=== PATIENT | male | born 1995 | race Caucasian/White ===

== ENCOUNTER 2017-10-22 20:52 | Emergency (ER) | payer BC ==
[~2017-10-22] VITALS: Ht 167.6 cm; Wt 99.8 kg
[2017-10-22 21:00] VITALS: BP 148/85
--- NOTE | 2017-10-22 21:43 | NUR ---
GISELL FERGUSON AT BEDSIDE FOR EVAL.
[2017-10-22] MEDS ORDERED: DEXAMETHASONE SOD PHOSPHATE 10 MG/ML VIAL ONE (21:58)
[2017-10-22] MEDS ORDERED: PENICILLIN G BENZATHINE 2.4 MMU/4 ML ML IM ONE ×2 (21:58→22:00)
[2017-10-22] MEDS ORDERED: DEXAMETHASONE SOD PHOSPHATE 10 MG/ML VIAL IM ONE (22:00)
== END 2017-10-22 22:06 | disposition home or self-care (01) ==
LOC: ER 20:55
DX: J03.90 Acute tonsillitis, unspecified (principal); F17.200 Nicotine dependence, unspecified, uncomplicated
CPT/HCPCS: A4606; J0558; J1100; Z7610

== ENCOUNTER 2017-10-24 19:38 | Emergency (ER) | payer BC ==
[~2017-10-24] VITALS: Ht 170.2 cm; Wt 99.8 kg
[2017-10-24] MEDS ORDERED: chlorproMAZINE HCL 25 MG TABLET PO ONE (20:30)
[2017-10-24] MEDS ORDERED: chlorproMAZINE HCL 25 MG TABLET ONE ×2 (21:07→21:08)
[2017-10-24 21:10] VITALS: BP 127/79
== END 2017-10-24 21:11 | disposition home or self-care (01) ==
LOC: ER 19:45
DX: R06.6 Hiccough (principal); F17.200 Nicotine dependence, unspecified, uncomplicated
CPT/HCPCS: 71010; 99283; 99406; A4606; Q0161 ×2; Z7610

== ENCOUNTER 2022-01-13 21:29 | Emergency (ER) | payer BC ==
[~2022-01-13] VITALS: Ht 165.1 cm; Wt 99.8 kg
--- NOTE | 2022-01-13 21:37 | NUR ---
BIBS C/O "SORETHROAT X2DAYS" TYLENOL [employer]ER. PATIENT ALERT AND ORIENTED X3. AMBULATORY WITH NON LABORED BREATHING.
[2022-01-13] MEDS ORDERED: DEXAMETHASONE SOD PHOSPHATE 4 MG/ML VIAL IM ONE (22:00)
[2022-01-13] MEDS ORDERED: DEXAMETHASONE SOD PHOSPHATE 4 MG/ML VIAL ONE (22:12)
--- NOTE | 2022-01-13 22:12 | NUR ---
COVID ANTIGEN AND STREP THROAT SWAB COLLECTED
[2022-01-13] MEDS ORDERED: AMOX500T2 PO (22:20)
--- NOTE | 2022-01-13 22:52 | NUR ---
Patient discharged to home in stable condition. Written and verbal after care instructions given. Patient verbalizes understanding of instruction.
[2022-01-13 22:53] VITALS: BP 135/71
== END 2022-01-13 22:54 | disposition home or self-care (01) ==
LOC: ER 21:32
DX: J02.0 Streptococcal pharyngitis (principal); B95.0 Streptococcus, group A, as the cause of diseases classified elsewhere; Z20.822 Contact with and (suspected) exposure to COVID-19; F17.200 Nicotine dependence, unspecified, uncomplicated
CPT/HCPCS: 87426; 87880; 96372; 99283; C9803; J1100; 86403-TC

== ENCOUNTER 2022-07-21 00:18 | Emergency (ER) | payer BC ==
[~2022-07-21] VITALS: Ht 165.1 cm; Wt 127.0 kg
[~2022-07-21 00:18] MED LIST: AMOX500T2 PO
[2022-07-21 00:40] VITALS: BP 168/90
[2022-07-21] MEDS ORDERED: CEPH500T PO (00:45)
[2022-07-21] MEDS ORDERED: SULF1TAB48 PO (00:45)
[2022-07-21] MEDS ORDERED: CEPHALEXIN MONOHYDRATE 500 MG CAPSULE PO ONE ×2 (00:47→01:00)
[2022-07-21] MEDS ORDERED: SULFAMETH/TRIMETH 800/160 MG 1 UDTAB TABLET ONE (00:48)
[2022-07-21] MEDS ORDERED: SULFAMETH/TRIMETH 800/160 MG 1 UDTAB TABLET PO ONE (01:00)
== END 2022-07-21 00:53 | disposition home or self-care (01) ==
LOC: ER 00:41
DX: L03.115 Cellulitis of right lower limb (principal); F17.200 Nicotine dependence, unspecified, uncomplicated

== ENCOUNTER 2023-04-28 20:20 | Emergency (ER) | payer BC ==
[~2023-04-28] VITALS: Ht 172.7 cm; Wt 99.8 kg
[~2023-04-28 20:20] MED LIST changes: +CEPH500T PO; +SULF1TAB48 PO
[2023-04-28] MEDS ORDERED: MORPHINE SULFATE INJ 4 MG/ML DISP.SYRIN ONE (20:59)
[2023-04-28] MEDS ORDERED: KETOROLAC TROMETHAMINE INJ 30 MG/ML VIAL ONE (20:59)
[2023-04-28] MEDS ORDERED: ONDANSETRON HCL/PF 4 MG/2 ML VIAL ONE (20:59)
[2023-04-28] MEDS ORDERED: IV NS 0.9% 1,000 ML BAG IV ONE (21:00)
[2023-04-28] MEDS ORDERED: KETOROLAC TROMETHAMINE INJ 30 MG/ML VIAL IV ONE (21:00)
[2023-04-28] MEDS ORDERED: ONDANSETRON HCL/PF 4 MG/2 ML VIAL IVP ONE (21:00)
[2023-04-28] MEDS ORDERED: MORPHINE SULFATE INJ 2 MG/ML DISP.SYRIN IV ONE (21:00)
[2023-04-28 21:25] LABS: BASOPHILS # (AUTO) 0.1 K/uL (0.0-0.2); BASOPHILS % (AUTO) 0.5 % (0.0-2.0); EOSINOPHILS % (AUTO) 2.2 % (0.0-6.0); HEMATOCRIT 45 % (39-51); LYMPHOCYTES % (AUTO) 31.2 % (20.0-44.0); MEAN CORPUSCULAR HGB CONC 34 g/dl (31.0-36.0); MEAN CORPUSCULAR VOLUME 87 fL (80-96); MONOCYTES # (AUTO) 0.8 K/uL (0.1-1.30); MONOCYTES % (AUTO) 6.4 % (2.0-12.0); NEUTROPHILS # (AUTO) 7.7 K/uL (1.8-8.9); NEUTROPHILS % (AUTO) 59.7 % (43.0-81.0); PLATELET COUNT (AUTO) 323 K/uL (150-450); RED BLOOD CELL COUNT(AUTO) 5.13 MIL/uL (4.5-6.0); WHITE BLOOD COUNT (AUTO) 12.9 K/uL (4.3-11.0)
[2023-04-28 21:26] LABS: CALCIUM, SERUM 9.7 mg/dL (8.5-10.1); CREATININE 0.9 mg/dL (0.6-1.3); POTASSIUM 4.1 mmol/L (3.5-5.1)
[2023-04-28 21:32] LABS: BILIRUBIN,URINE 1+ (NEGATIVE); COLOR,URINE YELLOW (YELLOW); LEUKOCYTE ESTERASE ,URINE NEGATIVE (NEGATIVE); NITRITE, URINE NEGATIVE (NEGATIVE); PROTEIN,URINE 3+ mg/dl (NEGATIVE); UGLUCOSE TRACE mg/dL (NEGATIVE); UROBILINOGEN,URINE 0.2 EU/dL (0.2)
[2023-04-28 21:37] LABS: BACTERIA,URINE None seen /HPF (None Seen); SQUAMOUS EPITHELIAL CELL,UR 0-2 /HPF (None Seen); WBC,URINE 0-2 /HPF (0-3)
[2023-04-28 21:40] LABS: ALBUMIN 3.8 g/dL (3.4-5.0); BILIRUBIN,DIRECT 0.1 mg/dL (0.0-0.2); BILIRUBIN,TOTAL 0.3 mg/dL (0.2-1.0); TOTAL PROTEIN, SERUM 8.9 g/dL (6.4-8.2)
[2023-04-28] MEDS ORDERED: NAPR-1192 PO (22:48)
[2023-04-28 22:53] VITALS: BP 155/97
== END 2023-04-28 22:52 | disposition home or self-care (01) ==
LOC: ER 20:26
DX: R10.12 Left upper quadrant pain (principal); R10.32 Left lower quadrant pain; R73.9 Hyperglycemia, unspecified; E66.01 Morbid (severe) obesity due to excess calories; R03.0 Elevated blood-pressure reading, without diagnosis of hypertension; F17.200 Nicotine dependence, unspecified, uncomplicated; Z68.33 Body mass index [BMI] 33.0-33.9, adult
CPT/HCPCS: 99285; 74176; 96374; 96375; 96361; 85025; 80048; 83690; 80076; 81001; 36415; J2270; J1885; J2405; J7030

== ENCOUNTER 2023-12-21 01:01 | Emergency (ER) | payer BC ==
[~2023-12-21] VITALS: Ht 167.6 cm; Wt 113.4 kg
[~2023-12-21 01:01] MED LIST changes: +NAPR-1192 PO
[2023-12-21 01:12] VITALS: TEMP 98
[2023-12-21] MEDS ORDERED: NITROGLYCERIN 0.4 MG/TAB BOTTLE ONE (01:23)
[2023-12-21] MEDS ORDERED: ASPIRIN 81 MG TAB.CHEW ONE (01:23)
[2023-12-21] MEDS ORDERED: ASPIRIN 325 MG TABLET ONE (01:26)
[2023-12-21] MEDS ORDERED: NITROGLYCERIN 0.4 MG/TAB BOTTLE SL ONE (01:30)
[2023-12-21] MEDS ORDERED: ASPIRIN 325 MG TABLET PO ONE (01:30)
[2023-12-21 02:04] LABS: BASOPHILS # (AUTO) 0.1 K/uL (0.0-0.2); BASOPHILS % (AUTO) 0.9 % (0.0-2.0); EOSINOPHILS # (AUTO) 0.3 K/uL (0.0-0.7); EOSINOPHILS % (AUTO) 2.3 % (0.0-6.0); HEMATOCRIT 43 % (39-51); HEMOGLOBIN 14.8 g/dL (13.5-17.5); LYMPHOCYTES # (AUTO) 5.1 K/uL (0.8-4.8); MEAN CORPUSCULAR HEMOGLOBIN 30 PG (26.0-33.0); MEAN CORPUSCULAR HGB CONC 34 g/dl (31.0-36.0); MEAN CORPUSCULAR VOLUME 88 fL (80-96); MONOCYTES # (AUTO) 0.7 K/uL (0.1-1.30); MONOCYTES % (AUTO) 5.4 % (2.0-12.0); NEUTROPHILS % (AUTO) 49.4 % (43.0-81.0); PLATELET COUNT (AUTO) 292 K/uL (150-450); RED BLOOD CELL COUNT(AUTO) 4.89 MIL/uL (4.5-6.0); RED CELL DISTRIBUTION WIDTH 13.7 % (11.5-15.0); WHITE BLOOD COUNT (AUTO) 12.1 K/uL (4.3-11.0)
[2023-12-21 02:14] LABS: CALCIUM, SERUM 9.7 mg/dL (8.5-10.1); CARBON DIOXIDE 28 mmol/L (21-32); CHLORIDE 101 mmol/L (98-107); GLUCOSE 167 mg/dL (74-106); POTASSIUM 3.5 mmol/L (3.5-5.1); SODIUM SERUM 139 mmol/L (136-145); UREA NITROGEN, BLOOD 9 mg/dL (7-18)
[2023-12-21 02:17] LABS: D-DIMER < 0.19 mg/L(FEU (0.17-0.50); INR 0.97 (0.91-1.10); PARTIAL THROMBOPLASTIN TIME 26.1 SEC (24.3-34.3); PROTHROMBIN TIME 10.3 SECS (9.2-11.1)
[2023-12-21 02:27] LABS: ALANINE AMINOTRANSFERASE 248 U/L (12-78); ALBUMIN 3.9 g/dL (3.4-5.0); ALKALINE PHOSPHATASE 70 U/L (46-116); ASPARTATE AMINOTRANSFERASE 103 U/L (15-37); BILIRUBIN,DIRECT 0.1 mg/dL (0.0-0.2); BILIRUBIN,TOTAL 0.4 mg/dL (0.2-1.0); TOTAL PROTEIN, SERUM 8.6 g/dL (6.4-8.2)
[2023-12-21 05:12] VITALS: BP 124/68; O2SAT 98
== END 2023-12-21 05:12 | disposition home or self-care (01) ==
LOC: ER 01:02
DX: R07.9 Chest pain, unspecified (principal); E66.01 Morbid (severe) obesity due to excess calories; E11.9 Type 2 diabetes mellitus without complications; F17.200 Nicotine dependence, unspecified, uncomplicated; Z68.41 Body mass index [BMI] 40.0-44.9, adult
CPT/HCPCS: 36415; 71045-TC; 80048-TC; 80076-TC; 84484-TC; 85025-TC; 85378-TC; 85730-TC

== ENCOUNTER 2024-02-10 18:02 | Emergency (ER) | payer BC ==
[~2024-02-10] VITALS: Ht 167.6 cm; Wt 104.3 kg
[2024-02-10] MEDS ORDERED: ONDANSETRON HCL/PF 4 MG/2 ML VIAL ONE (20:23)
[2024-02-10] MEDS ORDERED: dexaMETHasone SOD PHOSPHATE 1 ML ONE (20:23)
[2024-02-10] MEDS ORDERED: PIPERACI/TAZO 3.375GM/D5W 50ML PB IV ONE (20:24)
[2024-02-10] MEDS ORDERED: MORPHINE SULFATE INJ 4 MG/ML DISP.SYRIN ONE (20:24)
[2024-02-10 20:31] LABS: BASOPHILS # (AUTO) 0.1 K/uL (0.0-0.2); BASOPHILS % (AUTO) 0.3 % (0.0-2.0); EOSINOPHILS % (AUTO) 0.2 % (0.0-6.0); HEMATOCRIT 44 % (39-51); HEMOGLOBIN 14.8 g/dL (13.5-17.5); LYMPHOCYTES # (AUTO) 1.7 K/uL (0.8-4.8); LYMPHOCYTES % (AUTO) 9.9 % (20.0-44.0); MEAN CORPUSCULAR HEMOGLOBIN 30 PG (26.0-33.0); MEAN CORPUSCULAR HGB CONC 34 g/dl (31.0-36.0); MEAN CORPUSCULAR VOLUME 88 fL (80-96); MONOCYTES # (AUTO) 0.7 K/uL (0.1-1.30); MONOCYTES % (AUTO) 4.3 % (2.0-12.0); NEUTROPHILS # (AUTO) 14.9 K/uL (1.8-8.9); NEUTROPHILS % (AUTO) 85.3 % (43.0-81.0); PLATELET COUNT (AUTO) 249 K/uL (150-450); RED BLOOD CELL COUNT(AUTO) 4.95 MIL/uL (4.5-6.0); WHITE BLOOD COUNT (AUTO) 17.5 K/uL (4.3-11.0)
[2024-02-10] MEDS: ONDANSETRON HCL/PF - ER 4 MG/2 ML VIAL IV ONE (20:37)
[2024-02-10] MEDS: PIPERACILLIN /TAZOBACTAM 3.375 G in IV D5W 50 ML IV ONE (20:37)
[2024-02-10] MEDS: dexaMETHasone SOD PHOSPHATE 10 MG/ML VIAL IV ONE (20:38)
[2024-02-10] MEDS: MORPHINE SULFATE INJ 2 MG/ML DISP.SYRIN IV ONE (20:38)
[2024-02-10 21:02] LABS: CREATININE 0.9 mg/dL (0.6-1.3)
[2024-02-10] MEDS ORDERED: AMOX500C2 PO (21:47)
[2024-02-10] MEDS ORDERED: IBUP-1953 PO (21:47)
[2024-02-10 21:54] VITALS: BP 139/81; TEMP 98; O2SAT 98
[2024-02-11 01:57] LABS: ANISOCYTOSIS 1+; BAND % (MANUAL) 2 % (0.0-5.0); EOSINOPHILS % (MANUAL) 0 % (0-4); LYMPHOCYTES % (MANUAL) 11 % (16-48); MONOCYTES % (MANUAL) 6 % (0-11.0); NEUTROPHILS % (MANUAL) 81 (42-76); PLATELET ESTIMATE ADEQUATE; STOMATOCYTES 1+
== END 2024-02-10 21:55 | disposition home or self-care (01) ==
LOC: ER 18:12
DX: J03.90 Acute tonsillitis, unspecified (principal); J45.909 Unspecified asthma, uncomplicated; F17.200 Nicotine dependence, unspecified, uncomplicated; Z20.822 Contact with and (suspected) exposure to COVID-19; Z79.899 Other long term (current) drug therapy
CPT/HCPCS: 99284; 96365; 96375; 87426; 85025; 80048; 87070; 36415; 87880; 85007; J1100; J2270; J2405 ×2; J2543 ×2; J7060; 86403-TC

== ENCOUNTER 2025-04-26 14:21 | Emergency (ER) | payer SELFPAY ==
[~2025-04-26] VITALS: Ht 172.7 cm; Wt 113.4 kg
[~2025-04-26 14:21] MED LIST changes: +AMOX500C2 PO; +IBUP-1953 PO
[2025-04-26 14:28] VITALS: BP 126/70; TEMP 98.1
[2025-04-26] MEDS ORDERED: IBUPROFEN 400 MG TABLET ONE (15:09)
[2025-04-26] MEDS: IBUPROFEN 400 MG TABLET PO ONE (15:13)
[2025-04-26 15:42] VITALS: O2SAT 99
== END 2025-04-26 15:43 | disposition home or self-care (01) ==
LOC: ER 14:21
DX: M25.561 Pain in right knee (principal); M25.552 Pain in left hip; E11.9 Type 2 diabetes mellitus without complications; F17.200 Nicotine dependence, unspecified, uncomplicated; J45.909 Unspecified asthma, uncomplicated; Z79.899 Other long term (current) drug therapy; V43.52XA Car driver injured in collision with other type car in traffic accident, initial encounter; Y93.89 Activity, other specified; Y92.488 Other paved roadways as the place of occurrence of the external cause; Y99.8 Other external cause status
CPT/HCPCS: 73502; 73564-TC

== ENCOUNTER 2025-05-10 22:56 | Inpatient (IN) | payer MEDICAID ==
[~2025-05-10] VITALS: Ht 175.3 cm; Wt 145.6 kg
[2025-05-10 00:36] VITALS: O2SAT 98
[2025-05-10] MEDS ORDERED: predniSONE 20 MG TABLET ONE (23:33)
[2025-05-10 23:36] VITALS: O2SAT 100
[2025-05-10] MEDS: predniSONE 20 MG TABLET PO ONE (23:36)
[2025-05-10] MEDS: ALBUTEROL FS 2.5 MG/3 ML VIAL.NEB CONTNEB ONE (23:36)
[2025-05-10] MEDS: IPRATROPIUM NEB FS 0.5 MG/2.5 ML AMPUL.NEB NEB ONE (23:36)
[2025-05-10] MEDS ORDERED: ALBUTEROL FS 2.5 MG/3 ML VIAL.NEB ONE (23:41)
[2025-05-10] MEDS ORDERED: IPRATROPIUM NEB FS 0.5 MG/2.5 ML AMPUL.NEB ONE (23:41)
[2025-05-11] MEDS ORDERED: Magnesium 1GM/D5W 100ML PREMIX 100 ML IV ONE ×2 (01:37→02:37)
[2025-05-11] MEDS: ALBUTEROL FS 2.5 MG/3 ML VIAL.NEB NEB ONE (01:42)
[2025-05-11 01:50] VITALS: O2SAT 94
[2025-05-11] MEDS ORDERED: ALBUTEROL FS 2.5 MG/3 ML VIAL.NEB ONE (01:51)
[2025-05-11 01:53] LABS: BASOPHILS # (AUTO) 0.1 K/uL (0.0-0.2); BASOPHILS % (AUTO) 0.4 % (0.0-2.0); EOSINOPHILS # (AUTO) 0.2 K/uL (0.0-0.7); EOSINOPHILS % (AUTO) 1.7 % (0.0-6.0); HEMATOCRIT 41 % (39-51); HEMOGLOBIN 13.9 g/dL (13.5-17.5); LYMPHOCYTES # (AUTO) 4.5 K/uL (0.8-4.8); LYMPHOCYTES % (AUTO) 33.9 % (20.0-44.0); MEAN CORPUSCULAR HEMOGLOBIN 29 PG (26.0-33.0); MEAN CORPUSCULAR HGB CONC 34 g/dl (31.0-36.0); MEAN CORPUSCULAR VOLUME 86 fL (80-96); MONOCYTES # (AUTO) 0.8 K/uL (0.1-1.30); MONOCYTES % (AUTO) 6.3 % (2.0-12.0); NEUTROPHILS # (AUTO) 7.7 K/uL (1.8-8.9); NEUTROPHILS % (AUTO) 57.7 % (43.0-81.0); PLATELET COUNT (AUTO) 369 K/uL (150-450); RED BLOOD CELL COUNT(AUTO) 4.76 MIL/uL (4.5-6.0); RED CELL DISTRIBUTION WIDTH 13.5 % (11.5-15.0); WHITE BLOOD COUNT (AUTO) 13.4 K/uL (4.3-11.0)
[2025-05-11] MEDS: Magnesium 1GM/D5W 100ML PREMIX 200 ML IV ONE (01:57)
[2025-05-11 02:00] VITALS: O2SAT 100; O2SAT 98
[2025-05-11 02:01] LABS: CARBON DIOXIDE 29 mmol/L (21-32); CHLORIDE 103 mmol/L (98-107); CREATININE 0.9 mg/dL (0.6-1.3); GLUCOSE 196 mg/dL (74-106); POTASSIUM 3.5 mmol/L (3.5-5.1); SODIUM SERUM 142 mmol/L (136-145); UREA NITROGEN, BLOOD 13 mg/dL (7-18)
[2025-05-11 02:13] LABS: ALANINE AMINOTRANSFERASE 78 U/L (12-78); ALBUMIN 3.2 g/dL (3.4-5.0); ALKALINE PHOSPHATASE 62 U/L (46-116); ASPARTATE AMINOTRANSFERASE 24 U/L (15-37); BILIRUBIN,DIRECT 0.1 mg/dL (0.0-0.2); BILIRUBIN,TOTAL 0.3 mg/dL (0.2-1.0); TOTAL PROTEIN, SERUM 7.8 g/dL (6.4-8.2)
[2025-05-11 02:20] LABS: NT-PRO BNP 7 pg/mL (0-125)
[2025-05-11 03:00] VITALS: O2SAT 95
[2025-05-11] MEDS ORDERED: ALBUTEROL FS 2.5 MG/3 ML VIAL.NEB NEB PRN (03:00)
[2025-05-11] MEDS ORDERED: MAG HYDROX/AL HYDROX/SIMETH 30 ML UDC PO PRN (03:00)
[2025-05-11] MEDS ORDERED: DEXTROSE 50%-WATER 50 ML DISP.SYRIN IV PRN (03:00)
[2025-05-11] MEDS ORDERED: ACETAMINOPHEN 325 MG TABLET PO PRN (03:00)
[2025-05-11] MEDS ORDERED: ONDANSETRON HCL/PF 4 MG/2 ML VIAL IVP PRN (03:00)
[2025-05-11] MEDS ORDERED: IPRATROPIUM NEB FS 0.5 MG/2.5 ML AMPUL.NEB NEB PRN (03:00)
[2025-05-11] MEDS ORDERED: MAGNESIUM HYDROXIDE 30 ML UDC PO PRN (03:00)
[2025-05-11 04:20] VITALS: BP 138/87; TEMP 98.1; O2SAT 96
[2025-05-11] MEDS: BLOOD SUGAR DIAGNOSTIC 1 EACH STRIP IN SCH (06:35)
[2025-05-11] MEDS: INSULIN REGULAR, HUMAN 100 UNIT/ML 3 ML VIAL SQ PRN (06:40)
[2025-05-11] MEDS ORDERED: METF1000 PO (07:34)
[2025-05-11 08:00] VITALS: BP 140/78; TEMP 97.7; O2SAT 98
[2025-05-11] MEDS: predniSONE 20 MG TABLET PO SCH (08:36)
[2025-05-11] MEDS: ENOXAPARIN SODIUM 40 MG/0.4 ML DISP.SYRIN SQ SCH (08:39)
== END 2025-05-11 13:00 | disposition left against medical advice (07) | DRG 140 ==
LOC: ER 22:59 → TELE 05-11 03:55 → MED 05-11 04:22
PROVIDERS: ATTEND Nurse Practitioner Acute Care
DX: J44.1 Chronic obstructive pulmonary disease with (acute) exacerbation (principal); J96.01 Acute respiratory failure with hypoxia; F17.210 Nicotine dependence, cigarettes, uncomplicated; D72.829 Elevated white blood cell count, unspecified; E66.9 Obesity, unspecified; Z68.42 Body mass index [BMI] 45.0-49.9, adult; Z53.29 Procedure and treatment not carried out because of patient's decision for other reasons; Z71.6 Tobacco abuse counseling
CPT/HCPCS: 36415; 71045-TC; 80048-TC; 80076-TC; 82962-TC; 83880; 84484-TC; 85025-TC; G0378; J1650; J1815; J3475